=== PATIENT | female | born 1955 | race Native Hawaiian/Other Pacific Islander ===

== ENCOUNTER 2017-06-06 17:27 | Observation (INO) | payer OTHER ==
[~2017-06-06] VITALS: Ht 157.5 cm; Wt 60.3 kg
--- NOTE | 2017-06-06 17:29 | NUR ---
PT DIRECTLY TO ROOM 14 VIA WHEELCHAIR.
[2017-06-06 18:00] LABS: HEMATOCRIT 39.3 % (37.0-47.0); HEMOGLOBIN 13.4 g/dl (12.0-16.0); IMMATURE GRANULOCYTES 0.2 % (0.0-1.0); MEAN CELL VOLUME 91.2 fL CALC (80.0-100.0); MEAN CORPUSCULAR HGB 31.1 pG CALC (26.0-32.0); MEAN CORPUSCULAR HGB CONC 34.1 g/L CALC (32.0-36.0); NEUT# 3.08 thou/uL (2.00-7.15); RED BLOOD COUNT 4.31 mill/uL (4.20-5.60); RED CELL DISTRI WIDTH 11.5 % (11.5-15.5)
[2017-06-06 18:17] LABS: ALBUMIN 4.3 g/dL (3.2-5.0); ALKALINE PHOSPHATASE 83 u/l (38-126); ANION GAP 16 (6-22 (CALC)); BILIRUBIN, TOTAL 0.7 mg/dL (0.0-1.4); BUN 10 mg/dL (8-23); BUN/CREATININE RATIO 15 (12-20 (CALC)); CARBON DIOXIDE 24 mmol/l (22-30); CHLORIDE 98 mmol/l (95-108); CREATININE 0.7 mg/dL (0.5-1.0); GFR > 60 ML/MIN (>=60 (CALC)); GFR FOR AFR.AMER. > 60 ML/MIN (>=60 (CALC)); LIPASE 179 u/l (23-300); POTASSIUM 3.8 mmol/l (3.5-5.1); SGOT/AST 51 u/l (9-36); SGPT/ALT 47 u/l (11-66); SODIUM 134 mmol/l (137-146); TOTAL PROTEIN 7.7 g/dL (6.3-8.2)
[2017-06-06] MEDS ORDERED: METOPROL TAR25 MG PO (18:26)
[2017-06-06] MEDS ORDERED: CITALOPRAM20 MG PO (18:27)
[2017-06-06] MEDS ORDERED: FAMOTIDINE20 M1 PO (18:27)
[2017-06-06] MEDS ORDERED: AMLODIPINE2.5 MG PO (18:28)
[2017-06-06] MEDS ORDERED: GNP KRILL OIL O1 CAP PO (18:28)
[2017-06-06] MEDS ORDERED: CA CITRATE250 MG PO (18:29)
--- NOTE | 2017-06-06 18:29 | NUR ---
PT TO RESTROOM VIA W/C BECAUSE OF FEELING DIZZY, PT BACK IN BED AND RECONNECTED TO MONITOR, AT PT SIDE.
[2017-06-06] MEDS ORDERED: FLONASE SE27.5 MCG/S (18:30)
--- NOTE | 2017-06-06 19:05 | NUR ---
AMBULATED TO BATHROOM WITH ASSISTANCE. STEADY GAIT. STATES STILL HAVING SOME DIZZINESS.
[2017-06-06 19:14] LABS: URINE BILIRUBIN - DIPSTICK NEGATIVE (NEGATIVE); URINE BLOOD DIPSTICK SMALL (NEGATIVE); URINE GLUCOSE - DIPSTICK NEGATIVE (NEGATIVE); URINE KETONE NEGATIVE (NEGATIVE); URINE LEUK ESTERASE NEGATIVE (NEGATIVE); URINE NITRITE - DIPSTICK NEGATIVE (Negative); URINE PH 6.5 (4.5-8.0); URINE PROTEIN - DIPSTICK NEGATIVE (NEG-TRACE); URINE SPECIFIC GRAVITY <=1.005; URINE UROBILINOGEN - DIPSTICK 0.2 E.U./dL (0.2)
[2017-06-06 19:15] LABS: URINE CLARITY CLEAR; URINE COLOR STRAW
--- NOTE | 2017-06-06 19:15 | NUR ---
PT HAVING URINARY FREQUENCY. DISCUSSED WITH MD. ORDERS RECEIVED.
[2017-06-06 19:21] LABS: URINE SQUAMOUS EPITHELIAL CELL RARE EPI/hpf (0-FEW); URINE WBC 0-2 WBC/hpf (0-5)
--- NOTE | 2017-06-06 19:37 | NUR ---
RESTING COMFORTABLY PENDING DISPOSITION.
--- NOTE | 2017-06-06 20:43 | NUR ---
Admission Note Report Given to: SELWYN AYALA Transported by: Wheelchair X Stretcher Transported with: X Nurse Transporter X Patent IV O2 X Program Associate
--- NOTE | 2017-06-06 20:50 | NUR ---
HAD SYNCOPAL EPISODE ENROUTE TO BATHROOM. PLACED BACK IN BED. NTG OINT REMOVED
--- NOTE | 2017-06-06 21:15 | NUR ---
DR. CIFUENTES UPDATED ON RECENT EVENTS.
--- NOTE | 2017-06-06 21:43 | NUR ---
TRANSFER VIA STRETCHER TO ROOM.
[2017-06-06 21:50] VITALS: BP 148/86
--- NOTE | 2017-06-06 21:50 | NUR ---
PT ARRIVED TO [facility] VIA [facility]RET[facility] WITH ER STAFF. PT ASSISTED SELF FROM STRETCHER TO BED. 2 FAMILY AT BEDSIDE. PT CURRENTLY C/O GENERALIZED MUSCLE ACHES AT THIS TIME, HOWEVER, DENIES ANY ACTUAL PAIN. RESPIRATIONS EVEN AND UNLABORED ON ROOM AIR. ARRIVED WITH FLUIDS BOLUS INFUSING WITHOUT DIFFICULTY; IV SITE TO RFA APPEARS HEATLHY. TELE ON AND NITRO PASTE TO LEFT UPPER CHEST. OREINTED TO ROOM AND CALL LIGHT SYSTEM. PLAN OF CARE REVIEWED. PT ENCOURAGED TO VERBALIZE CONCERNS. STATES UNDERSTANDING. SAFETY MEASURES IN PLACE INCLUDING FALL PRECAUTIONS. CALL LIGHT WITHIN REACH.
[2017-06-07 00:04] VITALS: BP 113/72
--- NOTE | 2017-06-07 00:10 | NUR ---
PT'S BLOOD PRESSURE DECREASED FROM 148/86 62 AT TIME OF ADMISSION TO UNIT TO CURRENTLY 113/72 64. NITRO PASTE REMOVED. WILL CONTINUE TO MONITOR BLOOD PRESSURES. IV FLUIDS BOLUS COMPLETED. ONE VISITOR AT BEDSIDE. PT HAS NO COMLAINTS OR REQUESTS AT THIS TIME. SAFETY MEASURES IN PLACE. CALL LIGHT WITHIN REACH.
[2017-06-07 01:58] VITALS: BP 115/72
[2017-06-07 03:52] VITALS: BP 118/68
--- NOTE | 2017-06-07 04:00 | NUR ---
PT ASLEEP AT THIS TIME WITH FAMILY AT BEDSIDE. FAMILY IS STAND BY ASSISTING PT TO AMBULATE TO THE BATHROOM. DENIES PAIN AT THIS TIME. RESPIRATIONS EVEN AND UNLABORED ON ROOM AIR. BLOOD PRESSURES REMAIN STABLE. NO ACUTE CHANGES IN CONDITION THROUGHOUT THE NIGHT. SAFETY MEASURES IN PLACE. CALL LIGHT WITHIN REACH.
[2017-06-07 04:52] LABS: CHOLESTEROL HDL RATIO 4.5 (<4.4 (CALC))
--- NOTE | 2017-06-07 07:20 | NUR ---
SHIFT CHANGE REPORT FROM IVET AYALA AWAKE ALERT AND ORIENTED, C/O FACIAL HEADACHE AT THIS TIME AND REQUESTING SNACK, TELE MONITOR IN PLACE, WILL CONTINUE TO MONITOR AND ADDRESS NEEDS, CALL POTTS IN REACH.
[2017-06-07 08:47] VITALS: BP 118/91; BP 131/73; BP 142/84
--- NOTE | 2017-06-07 09:09 | NUR ---
PT REFUSED TYLENOL AT THIS TIME STATING ASPIRIN ALWAYS RELIEVES HER HEADACHE AND IF IS NOT RELIEVED SHE WILL TAKE THE TYLENOL, ALSO STATED SHE TAKES PEPCID BEFORE MEALS IN AM AND DOES NOT WANT TO TAKE IT NOW. ADVISED OF HOSPITALS TREATMENTS AND PROCEDURES AND INFORMED NOT FEASIBLE TO ACCOMMODATE EVERYONES INDIVIDUAL NEEDS BUT WILL DO THE BEST WE CAN. ENCOURAGED TO TAKE MED BEFORE LUNCH AND PT AGREED, WILL CONTINUE TO MONITOR AND ADDRESS NEEDS.
--- NOTE | 2017-06-07 09:13 | NUR ---
ORHTOSTATIC BP'S DONE AND RECORDED, PT ADVISED TO GET UP WITHOUT ASKING FOR ASSISTANCE, STATED UNDERSTANDING, CALL POTTS IN REACH.
[2017-06-07 11:03] VITALS: BP 127/68
--- NOTE | 2017-06-07 12:08 | NUR ---
RESTING IN BED AT THIS TIME, STILL AWAITING ROUNDS FROM MD, NEEDS ADDRESSED, WILL CONTINUE TO MONITOR, SPOUSE AT BEDSIDE.
[2017-06-07] MEDS ORDERED: catapres PO (14:25)
[2017-06-07] MEDS ORDERED: ASPIRIN CHEWABL81 MG PO (14:26)
--- NOTE | 2017-06-07 16:28 | NUR ---
Discharge instructions given. Patient verbalizes understanding of same. Discharged in stable condition via Wheelchair to Home with spouse. All belongings sent with pt.
== END 2017-06-07 16:30 | disposition home or self-care (01) | DRG 313 ==
LOC: ED 17:27 → ED-I 19:00 → ED 20:21 → MS2 20:22
PROVIDERS: Emergency Medicine; ADMIT Internal Medicine; ATTEND Internal Medicine
DX: R07.9 Chest pain, unspecified (principal); B37.9 Candidiasis, unspecified; F41.9 Anxiety disorder, unspecified; M79.1 Myalgia; E78.5 Hyperlipidemia, unspecified; I10 Essential (primary) hypertension; K21.9 Gastro-esophageal reflux disease without esophagitis; R74.8 Abnormal levels of other serum enzymes

== ENCOUNTER 2017-06-09 16:58 | Observation (INO) | payer OTHER ==
[~2017-06-09] VITALS: Ht 157.5 cm; Wt 56.0 kg
[~2017-06-09 16:58] MED LIST: AMLODIPINE2.5 MG PO; ASPIRIN CHEWABL81 MG PO; CA CITRATE250 MG PO; CITALOPRAM20 MG PO; FAMOTIDINE20 M1 PO; FLONASE SE27.5 MCG/S; GNP KRILL OIL O1 CAP PO; METOPROL TAR25 MG PO; catapres PO
--- NOTE | 2017-06-09 17:51 | NUR ---
PT TO ROOM W/STEADY GAIT.
--- NOTE | 2017-06-09 18:00 | NUR ---
PATIENT BACK TO ROOM VIA WHEELCHAIR BY TRIAGE NURSE.
--- NOTE | 2017-06-09 18:47 | NUR ---
BEDSIDE REPORT GIVEN TO SELWYN GILLIAM. CARE RELINQUISHED.
[2017-06-09 18:54] LABS: URINE BILIRUBIN - DIPSTICK NEGATIVE (NEGATIVE); URINE BLOOD DIPSTICK MODERATE (NEGATIVE); URINE COLOR YELLOW; URINE GLUCOSE - DIPSTICK NEGATIVE (NEGATIVE); URINE KETONE NEGATIVE (NEGATIVE); URINE NITRITE - DIPSTICK NEGATIVE (Negative); URINE PH 6.5 (4.5-8.0); URINE PROTEIN - DIPSTICK NEGATIVE (NEG-TRACE); URINE SPECIFIC GRAVITY 1.015; URINE UROBILINOGEN - DIPSTICK 0.2 E.U./dL (0.2)
[2017-06-09 18:55] LABS: HEMATOCRIT 40.5 % (37.0-47.0); HEMOGLOBIN 13.9 g/dl (12.0-16.0); IMMATURE GRANULOCYTES 0.2 % (0.0-1.0); MEAN CELL VOLUME 90.8 fL CALC (80.0-100.0); MEAN CORPUSCULAR HGB 31.2 pG CALC (26.0-32.0); MEAN CORPUSCULAR HGB CONC 34.3 g/L CALC (32.0-36.0); NEUT# 2.89 thou/uL (2.00-7.15); RED BLOOD COUNT 4.46 mill/uL (4.20-5.60); RED CELL DISTRI WIDTH 11.3 % (11.5-15.5); URINE CLARITY TURBID; URINE LEUK ESTERASE MODERATE (NEGATIVE)
--- NOTE | 2017-06-09 19:20 | NUR ---
PT. C/O EPIGASTRIC PAIN AFTER SHE RECEIVED THE MS SHOT FOR TIAN. AWARE.
[2017-06-09 19:24] LABS: URINE BACTERIA FEW hpf; URINE RBC 25-50 RBC/hpf (0-5); URINE SQUAMOUS EPITHELIAL CELL FEW EPI/hpf (0-FEW); URINE WBC 20-50 WBC/hpf (0-5)
--- NOTE | 2017-06-09 19:39 | NUR ---
BP A;ARM 70/40 HR 54. MD AT BEDSIDE. PT. PLACED IN TRENDELENBERG. BP 74/39.
[2017-06-09 19:55] LABS: ALBUMIN 4.3 g/dL (3.2-5.0); ALKALINE PHOSPHATASE 88 u/l (38-126); ANION GAP 15 (6-22 (CALC)); BILIRUBIN, TOTAL 0.7 mg/dL (0.0-1.4); BUN 10 mg/dL (8-23); BUN/CREATININE RATIO 14 (12-20 (CALC)); CARBON DIOXIDE 26 mmol/l (22-30); CHLORIDE 97 mmol/l (95-108); CREATININE 0.7 mg/dL (0.5-1.0); GFR > 60 ML/MIN (>=60 (CALC)); GFR FOR AFR.AMER. > 60 ML/MIN (>=60 (CALC)); POTASSIUM 3.6 mmol/l (3.5-5.1); SGOT/AST 25 u/l (9-36); SGPT/ALT 39 u/l (11-66); SODIUM 134 mmol/l (137-146); TOTAL PROTEIN 7.4 g/dL (6.3-8.2)
[2017-06-09 19:58] LABS: AMYLASE 141 u/l (30-110); LIPASE 168 u/l (23-300)
[2017-06-09 20:00] LABS: PROTHROMBIN TIME 10.7 SECONDS (9.0-12.5)
[2017-06-09 20:11] LABS: MYOGLOBIN 26 ng/mL (0 - 62)
--- NOTE | 2017-06-09 20:26 | NUR ---
PT. STATES, " I FEEL MUCH BETTER NOW." AWARE.
--- NOTE | 2017-06-09 20:45 | NUR ---
MD IN ROOM TO DISCUSS CLINICAL FINDINGS WITH PT. AND SO. ALSO MAKE HER AWARE OF ADMISSION, VERBALIZED UNDERSTANDING.
--- NOTE | 2017-06-09 21:12 | NUR ---
BELONINGS PACKED FOR TRANSFER TO [facility].
--- NOTE | 2017-06-09 21:15 | NUR ---
PO ABT. GIVEN PER MD ORDER.
--- NOTE | 2017-06-09 21:17 | NUR ---
Admission Note Report Given to: ROMEO SAMANO Transported by: Wheelchair X Stretcher Transported with: X Nurse Transporter X Patent IV X O2 X Tattooer
--- NOTE | 2017-06-09 21:25 | NUR ---
PT. TAKEN TO [place] FLOOR VIA STRETCHER, NO C/O.
--- NOTE | 2017-06-09 21:35 | NUR ---
PATIENT ARRIVED TO THE FLOOR IN STABLE CONDITION AND ACCOMPANIED BY ED NURSE. PT WEIGHED AND SETTLED TO BED. REPORT PAIN OF 3 ON SCALE OF 0-10.NO APPARENT ACUTE DISTRESS NOTED AT THIS TIME. ORIENT PATIENT TO ROOM CALL SYSTEM. BED IN LOW POSITION AND CALL LIGHT IN REACH.
[2017-06-09 21:40] VITALS: BP 120/73
--- NOTE | 2017-06-09 22:23 | NUR ---
ASSISTED PATIENT OOB TO BATHROOM. PT VOIDED IN TOILET.
[2017-06-10] VITALS (9 sets, daily range): BP systolic 100–144; BP diastolic 52–79
--- NOTE | 2017-06-10 | NUR ---
PATIENT IS RESTING QUIETLY WITH EYES CLOSED AND APPEARS TO BE ASLEEP. RESP EVEN AND NNLABORED. NO APPARENT ACUTE DISTRESS NOTED. WILL CONTINUE TO MONITOR.
--- NOTE | 2017-06-10 04:33 | NUR ---
PATIENT SLEPT WELL DURING THE NIGHT. NO VOICED COMPLAINTS. NO APPARENT ACUTE CHANGES NOTED IN PT'S CONDITION.
--- NOTE | 2017-06-10 07:30 | NUR ---
PT IS RELAXING IN BED INQUIRING ABOUT HER NERVE MEDICATIONS. EXPLAINED THAT THEY ORDERED HER MEDICATIONS, IV SITE IS FREE FROM REDNESS OR EDEMA. HR IS REG, PULSES ARE STRONG X4, ABD IS SOFT WITH ACTIVE BS, TELE MONITOR IN PLACE. CONTINUE TO OSBERVE AND MONITOR.
--- NOTE | 2017-06-10 08:40 | NUR ---
ORTHOSTATIC BP DONE ON PT AT THIS TIME. LAYING PT BP AT 0840 IS 122/52; PULSE 68; OXYGEN 99%; SITTING BP AT 0845 IS 144/68; PULSE 89; OXYGEN 99%; STANDING BP AT 0850 IS 130/63; PULSE 98; OXYGEN 98%; CALL POTTS IN REACH.
[2017-06-10 10:26] LABS: ANION GAP 16 (6-22 (CALC)); BUN 11 mg/dL (8-23); BUN/CREATININE RATIO 13 (12-20 (CALC)); CALCULATED LDLCHOLESTEROL 180 mg/dL (62-129 (CALC)); CARBON DIOXIDE 23 mmol/l (22-30); CHLORIDE 103 mmol/l (95-108); CHOLESTEROL HDL RATIO 4.7 (<4.4 (CALC)); CREATININE 0.8 mg/dL (0.5-1.0); GFR > 60 ML/MIN (>=60 (CALC)); GFR FOR AFR.AMER. > 60 ML/MIN (>=60 (CALC)); HDL CHOLESTEROL 52 mg/dL (>=40); MAGNESIUM 2.2 mg/dL (1.6-2.3); POTASSIUM 3.5 mmol/l (3.5-5.1); SODIUM 138 mmol/l (137-146); TOTAL CHOLESTEROL 247 mg/dl (0-199); TOTAL TRIGLYCERIDES 73 mg/dl (30-149); VLDL CHOLESTROL 15 mg/dl (1-41 (CALC))
--- NOTE | 2017-06-10 12:30 | NUR ---
PT IS RELAXING IN BED WITH NO DISTRESS NOTED. IV SITE IS FREE FROM REDNESS OR EDEMA. CONTINUE TO OSBERVE AND MONITOR.
--- NOTE | 2017-06-10 16:30 | NUR ---
PT HAS STARTED TO AMBULATE IN THE [place] WITH NO DISTRESS NOTED. IV SITE IS FREE FROM REDNESS OR EDEMA. CONTINUE TO OBSERVE AND MONITOR.
--- NOTE | 2017-06-10 19:00 | NUR ---
RECEIVED CHANGE OF SHIFT REPORT FROM MARYA LAMAR. PATIENT LYING IN BED AND APPEARS NOT TO BE IN ANY DISCOMFORT. FERMÍN PAIN. NO APPARENT ACUTE DISTRESS NOTED AT THIS TIME. VISITOR AT BEDSIDE.
--- NOTE | 2017-06-11 | NUR ---
PATIENT RESTING QUIETLY AT THIS TIME. NO VOICED COMPLAINTS. NO APPARENT ACUTE DISTRESS NOTED.
[2017-06-11 00:10] VITALS: BP 122/78
--- NOTE | 2017-06-11 04:00 | NUR ---
PATIENT'S AWAKE AND LYING IN BED. C/O BEING DIZZY. EDUCATION PROVIDED. MEDICATED WITH MIRALAX AND PRUNE JUICE FOR CONSTIPATION.
[2017-06-11 04:10] VITALS: BP 148/80
[2017-06-11 05:12] LABS: HEMATOCRIT 37.9 % (37.0-47.0); HEMOGLOBIN 12.7 g/dl (12.0-16.0); IMMATURE GRANULOCYTES 0.2 % (0.0-1.0); MEAN CELL VOLUME 92.4 fL CALC (80.0-100.0); MEAN CORPUSCULAR HGB CONC 33.5 g/L CALC (32.0-36.0); NEUT# 2.76 thou/uL (2.00-7.15); RED BLOOD COUNT 4.1 mill/uL (4.20-5.60); RED CELL DISTRI WIDTH 11.8 % (11.5-15.5)
[2017-06-11 05:36] LABS: ANION GAP 19 (6-22 (CALC)); BUN 11 mg/dL (8-23); BUN/CREATININE RATIO 13 (12-20 (CALC)); CARBON DIOXIDE 21 mmol/l (22-30); CHLORIDE 100 mmol/l (95-108); CREATININE 0.9 mg/dL (0.5-1.0); GFR > 60 ML/MIN (>=60 (CALC)); GFR FOR AFR.AMER. > 60 ML/MIN (>=60 (CALC)); MAGNESIUM 2.1 mg/dL (1.6-2.3); POTASSIUM 3.9 mmol/l (3.5-5.1); SODIUM 136 mmol/l (137-146)
[2017-06-11 07:45] VITALS: BP 135/77
--- NOTE | 2017-06-11 07:45 | NUR ---
PT CONTINUES TO C/O HEADACHE, HR IS REG, PULSES ARE STRONG X4, ABD IS SOFT WITH ACTIVE BS , IV SITE IS FREE FROM REDNESS OR EDEMA. TELE MONITOR IN PLACE. FAMILY IN THE ROOM. CONTINUE TO OSBERVE AND MONITOR.
[2017-06-11 11:30] VITALS: BP 149/81
[2017-06-11] MEDS ORDERED: SMZ-TMP DS1 TAB PO (12:07)
--- NOTE | 2017-06-11 12:30 | NUR ---
PT IS RELAXING IN BED WITH NO DISTRESS NOTED. IV SITE IS FREE FROM REDNESS OR EDEMA. CONTINUE TO OSBERVE AND MONITOR.
--- NOTE | 2017-06-11 14:16 | NUR ---
PT C/O FOOD NOT WANTING SPAGHETTI TOLD THE AUXILLARY SHE WAS NOT GOING TO EAT IT. INQUIRED WITH HER WHAT SHE WOULD LIKE, SHE WANTS CHICKEN.
[2017-06-11 15:15] VITALS: BP 144/82
--- NOTE | 2017-06-11 15:45 | NUR ---
PT JUST COMPLETED A SHOWER AND TOLD " I FEEL A LITTLE BETTER". IV SITE IS FREE FROM REDNESS OR EDEMA. CONTINUE TO OBSERVE AND MONITOR.
--- NOTE | 2017-06-11 18:39 | NUR ---
PT IS EATING DINNER AND RELAXING IN BED FANILY IN THE ROOM.
--- NOTE | 2017-06-11 19:05 | NUR ---
PT RECEIVED DISCHARGE INSTRUCTIONS AND IV WAS DISCONTINUED WITH TELE MONITOR CATHETER INTACT. FAMILY AND ALL BELONGINGS. Discharge instructions given. Patient verbalizes understanding of same. Discharged in stable condition via Wheelchair to Home with family. All belongings sent with pt.
== END 2017-06-11 19:05 | disposition home or self-care (01) | DRG 312 ==
LOC: ED 16:58 → ED-I 20:40 → ED 20:49 → MS2 20:50
PROVIDERS: Emergency Medicine; Nurse Practitioner Family; ADMIT Internal Medicine; ATTEND Internal Medicine
DX: I95.2 Hypotension due to drugs (principal); B37.0 Candidal stomatitis; N39.0 Urinary tract infection, site not specified; R51 Headache; I10 Essential (primary) hypertension; E78.5 Hyperlipidemia, unspecified; F41.9 Anxiety disorder, unspecified; K21.9 Gastro-esophageal reflux disease without esophagitis; K44.9 Diaphragmatic hernia without obstruction or gangrene; T46.5X5A Adverse effect of other antihypertensive drugs, initial encounter; T46.1X5A Adverse effect of calcium-channel blockers, initial encounter

== ENCOUNTER 2022-01-23 12:25 | Emergency (ER) | payer MEDICARE, OTHER ==
[~2022-01-23] VITALS: Ht 157.5 cm; Wt 62.7 kg
[2022-01-23] VITALS (10 sets, daily range): BP systolic 106–145; BP diastolic 62–81
[~2022-01-23 12:25] MED LIST changes: +SMZ-TMP DS1 TAB PO
[2022-01-23 13:05] LABS: HEMATOCRIT 38.1 % (37.0-47.0); HEMOGLOBIN 12.7 g/dl (12.0-16.0); MEAN CELL VOLUME 95.5 fL CALC (80.0-100.0); MEAN CORPUSCULAR HGB 31.8 pG CALC (26.0-32.0); MEAN CORPUSCULAR HGB CONC 33.3 g/dL CAL (32.0-36.0); NEUT# 3.17 thou/uL (2.00-7.15); RED BLOOD COUNT 3.99 mill/uL (4.20-5.60); RED CELL DISTRI WIDTH 11.7 % (11.5-15.5)
[2022-01-23] MEDS ORDERED: SIMVASTATIN10 MG PO (13:08)
[2022-01-23 13:19] LABS: ALBUMIN 3.9 g/dL (3.2-5.0); ALKALINE PHOSPHATASE 56 u/l (38-126); ANION GAP 14 (6-22 (CALC)); BILIRUBIN, TOTAL 0.5 mg/dL (0.0-1.4); BUN 16 mg/dL (8-23); BUN/CREATININE RATIO 20 (12-20 (CALC)); CARBON DIOXIDE 24 mmol/l (22-30); CHLORIDE 102 mmol/l (95-108); CREATININE 0.8 mg/dL (0.5-1.0); GFR FOR AFR.AMER. > 60 ML/MIN (>=60 (CALC)); GFR OTHER RACES > 60 ML/MIN (>=60 (CALC)); POTASSIUM 3.3 mmol/l (3.5-5.1); SGOT/AST 40 u/l (9-36); SODIUM 137 mmol/l (137-146); TOTAL PROTEIN 6.7 g/dL (6.3-8.2)
== END 2022-01-23 15:21 | disposition home or self-care (01) ==
LOC: ED 12:25
PROVIDERS: Family Medicine
DX: R56.9 Unspecified convulsions (principal); I10 Essential (primary) hypertension; F41.9 Anxiety disorder, unspecified; E78.00 Pure hypercholesterolemia, unspecified; K21.9 Gastro-esophageal reflux disease without esophagitis